=== PATIENT | female | born 1995 | race American Indian/Alaskan Native ===

== ENCOUNTER 2017-10-10 21:14 | Emergency (ER) | payer MEDICAID ==
[2017-10-10 21:38] VITALS: RESP 18; O2SAT 97
--- NOTE | 2017-10-10 22:08 | C.PDOC ---
History Of Present Illness Patient presents to the ER with a complaint of dysuria and vaginal discharge for the past few days. Patient reports she is sexually active; denies fever, chills, or abdominal pain. Time Seen by Provider: 10/10/17 22:08 Chief Complaint (Nursing): Female Genitourinary History Per: Patient History/Exam Limitations: no limitations Onset/Duration Of Symptoms: Days Current Symptoms Are (Timing): Still Present Severity: Mild Pain Scale Rating Of: 3 Quality Of Discomfort: Unable To Describe Associated Symptoms: Urinary Symptoms, Other (Vaginal discharge). denies: Fever , Chills Alleviating Factors: None Recent travel outside of the [place]: No Additional History Per: Patient Abnormal Vaginal Bleeding: No Past Medical History Reviewed: Historical Data, Nursing Documentation, Vital Signs Vital Signs: Last Vital Signs Temp 98.3 F 10/10/17 21:34 Pulse 76 10/10/17 21:34 Resp 18 10/10/17 21:34 BP 110/70 10/10/17 21:34 Pulse Ox 97 10/10/17 22:24 - Medical History PMH: No Chronic Diseases Surgical History: No Surg Hx Family History: States: No Known Family Hx - Social History Hx Alcohol Use: Yes Hx Substance Use: Yes (MARIJUANA) - Immunization History Hx Tetanus Toxoid Vaccination: No Hx Influenza Vaccination: No Hx Pneumococcal Vaccination: No Review Of Systems Constitutional: Negative for: Fever, Chills Gastrointestinal: Positive for: Abdominal Pain Genitourinary: Positive for: Dysuria, Vaginal Discharge Skin: Negative for: Rash Neurological: Negative for: Weakness Psych: Negative for: Anxiety Physical Exam - Physical Exam Appears: Non-toxic Skin: Warm, Dry Head: Normacephalic Oral Mucosa: Moist Chest: Symmetrical, No Tenderness Cardiovascular: Rhythm Regular Respiratory: No Rales, No Rhonchi, No Wheezing Gastrointestinal/Abdominal: Soft, No Tenderness, Distention, Other (Obese) Pelvic: Normal External Exam, No Vaginal Bleeding, Vaginal Discharge (whitish, cottage cheese like), No Adnexal Tenderness Extremity: Normal ROM Neurological/Psych: Oriented x3 Gait: Steady ED Course And Treatment O2 Sat by Pulse Oximetry: 97 (Room air) Pulse Ox Interpretation: Normal Progress Note: Urinalysis ordered. Disposition Counseled Patient/Family Regarding: Studies Performed, Diagnosis, Need For Followup, Rx Given - Disposition Referrals: [facility] [Outside] [facility] [Outside] Disposition: HOME/ ROUTINE Disposition Time: 22:08 Condition: FAIR Additional Instructions: Please return if symptoms recur Prescriptions: Fluconazole [Diflucan] 200 mg PO DAILY #5 tab Nitrofurantoin Macrocrystals [Macrobid] 1 cap PO BID #10 cap Instructions: Urinary Tract Infection in Women (DC), Vulvovaginal Candidiasis ( ED) Forms: [employer] (Georgian) - Clinical Impression Clinical Impression: UTI (urinary tract infection), Candidiasis of genitalia in female - Scribe Statement The provider has reviewed the documentation as recorded by the Scribe Jose G Gonzalez All medical record entries made by the Scribe were at my direction and personally dictated by me. I have reviewed the chart and agree that the record accurately reflects my personal performance of the history, physical exam, medical decision making, and the department course for this patient. I have also personally directed, reviewed, and agree with the discharge instructions and disposition.
[2017-10-10 22:34] LABS: RBC URINE 3 /hpf (0-3); URINE BACTERIA RARE (<OCC); URINE BILIRUBIN NEGATIVE (NEGATIVE); URINE BLOOD NEGATIVE (NEGATIVE); URINE COLOR Yellow (YELLOW); URINE GLUCOSE (UA) NORMAL (Normal); URINE KETONE NEGATIVE (NEGATIVE); URINE LEUKOCYTE ESTERASE 2+ Leu/uL (Negative); URINE PROTEIN NEGATIVE (NEGATIVE); URINE UROBILINOGEN NORMAL mg/dL (0.2-1.0); WBC URINE 33 /hpf (0-5)
[2017-10-10 23:00] VITALS: BP 145/94; PULSE 74; TEMP 97.5
== END 2017-10-10 23:06 | disposition home or self-care (01) ==
LOC: C.ER 21:14
DX: N39.0 Urinary tract infection, site not specified (principal); B37.9 Candidiasis, unspecified

== ENCOUNTER 2018-06-10 14:05 | Emergency (ER) | payer MEDICAID ==
[2018-06-10 14:21] VITALS: BP 105/67; PULSE 78; RESP 18; TEMP 98.3; O2SAT 98
--- NOTE | 2018-06-10 14:26 | C.PDOC ---
History Of Present Illness 23 year old female presents to ED complaining of ear ache that started 4 days ago. Patient reports she felt her right ear was clogged and was trying to clean it out. Patient states she is feeling soreness behind her ear and and it feels like she has a migraine. Time Seen by Provider: 06/10/18 14:13 History Per: Patient History/Exam Limitations: None Onset/Duration Of Symptoms: Days Current Symptoms Are (Timing): Still Present Quality (Ear): Pain W/Touch, Other (sore) Symptoms Have Been: Continuous Past Medical History Reviewed: Historical Data, Nursing Documentation, Vital Signs Vital Signs: Last Vital Signs Temp 98.3 F 06/10/18 14:20 Pulse 78 06/10/18 14:20 Resp 18 06/10/18 14:20 BP 105/67 06/10/18 14:20 Pulse Ox 98 06/10/18 14:40 - Medical History PMH: Denies: Chronic Kidney Disease Surgical History: No Surg Hx Family History: States: No Known Family Hx - Social History Hx Alcohol Use: Yes Hx Substance Use: Yes - Immunization History Hx Tetanus Toxoid Vaccination: No Hx Influenza Vaccination: No Hx Pneumococcal Vaccination: No Review Of Systems Constitutional: Negative for: Fever ENT: Positive for: Ear Pain Neurological: Negative for: Seizures Physical Exam - Physical Exam Appears: Non-toxic Skin: Warm, Dry Head: Atraumatic, Normacephalic Eye(s): bilateral: Normal Inspection Ear(s): Left: Normal, Right: Other (ear infection. Canal is red and inflammed. TM normal) Oral Mucosa: Moist, Other (uvula midline, large tonsils bilaterally.) Neck: Supple Chest: Symmetrical Cardiovascular: Rhythm Regular, No Murmur Respiratory: Normal Breath Sounds, No Rales, No Rhonchi, No Wheezing Gastrointestinal/Abdominal: Soft, No Tenderness Neurological/Psych: Oriented x3, Normal Speech Gait: Steady ED Course And Treatment O2 Sat by Pulse Oximetry: 98 (RA) Pulse Ox Interpretation: Normal Medical Decision Making Medical Decision Making: Impression: Ear infection. Plan: * Tylenol * Ibuprofen Disposition Counseled Patient/Family Regarding: Diagnosis, Need For Followup, Rx Given - Disposition Referrals: Jaylon Celis MD [Staff Provider] - Disposition: HOME/ ROUTINE Disposition Time: 14:24 Condition: STABLE Additional Instructions: Use medication as indicted. Follow up with ENT if no improvement. Prescriptions: Ibuprofen [Motrin] 600 mg PO TID #15 tab Ofloxacin Otic 0.3% [Floxin 0.3% Otic Soln] 1 drop AD BID #1 bottle Instructions: Outer Ear Infection Forms: General Discharge Instructions, [facility] (Amharic), Work Excuse - POA Present On Arrival: None - Clinical Impression Clinical Impression: Otitis externa - Scribe Statement The provider has reviewed the documentation as recorded by the Shobha Austined Provider Attestation: All medical record entries made by the Shobha were at my direction and personally dictated by me. I have reviewed the chart and agree that the record accurately reflects my personal performance of the history, physical exam, medical decision making, and the department course for this patient. I have also personally directed, reviewed, and agree with the discharge instructions and disposition.
[2018-06-10 14:32] VITALS: BMI 47.5
== END 2018-06-10 14:35 | disposition home or self-care (01) ==
LOC: C.ER 14:05
DX: H66.90 Otitis media, unspecified, unspecified ear (principal)